=== PATIENT | male | born 1990 | race Caucasian/White ===

== ENCOUNTER 2018-04-14 21:16 | Emergency (ER) | END 2018-04-15 | disposition home or self-care (01) ==

== ENCOUNTER 2018-04-22 01:15 | Emergency (ER) | END 2018-04-22 04:33 | disposition left against medical advice (07) ==

== ENCOUNTER 2018-05-21 10:04 | Emergency (ER) | END 2018-05-21 10:58 | disposition home or self-care (01) ==

== ENCOUNTER 2018-09-16 03:38 | Emergency (ER) | END 2018-09-16 05:42 | disposition home or self-care (01) ==

== ENCOUNTER 2018-10-17 17:05 | Emergency (ER) | payer SELFPAY ==
[~2018-10-17] VITALS: Ht 167.6 cm; Wt 94.0 kg
[~2018-10-17 17:05] MED LIST: ACET500C5 PO; FAMO-96 PO; FIORICET PO; IBUP-1542 PO; OMEP20CA16 PO; ONDA4TAB14 PO; ONDA4TAB8 PO; PHEN177S43 MT
[2018-10-17 17:16] VITALS: BP 136/73; PULSE 87; RESP 16; Ht 167.6 cm; Wt 94.0 kg
== END 2018-10-17 18:01 | disposition left against medical advice (07) ==
LOC: FTE 17:05
DX: Z53.21 Procedure and treatment not carried out due to patient leaving prior to being seen by health care provider (principal)

== ENCOUNTER 2019-01-16 11:42 | Emergency (ER) | payer OTHER ==
[~2019-01-16] VITALS: Ht 170.2 cm; Wt 89.5 kg
[2019-01-16 11:48] VITALS: Ht 170.2 cm; Wt 89.5 kg
[2019-01-16] MEDS ORDERED: IBUP800T48 PO (13:02)
--- NOTE | 2019-01-16 13:02 | ERD ---
ER Documentation Chief Complaint Chief Complaint Chest pain x 3 days denies radiating pain HX acid reflux HPI This is a 28-year-old male is complaining of sharp left costosternal chest pain that is pinpoint for the past 3 days. He says he has had off and on for a few weeks and occurs when he has deep breaths. He says he really notices it when he plays basketball while running and occasionally other times. He says it hurts worse when he lays on his back and feels better when he lays on his right side. No radiation of pain or difficulty breathing no nausea palpitations ROS All systems reviewed and are negative except as per history of present illness. Medications Home Meds Active Scripts Ibuprofen* (Motrin*) 600 Mg Tab, 600 MG PO Q6, #30 TAB Prov:MARIUSZ KEBEDE PA-C 09/16/18 Phenol* (Chloraseptic* [place]) 177 Ml [place].pump, 2 SPRAY MT Q2H PRN for SORE THROAT, #1 BOTTLE Prov:MARIUSZ KEBEDE PA-C 09/16/18 Omeprazole* (Omeprazole*) 20 Mg Capsule.dr, 20 MG PO DAILY, #10 Prov:RAH CRUZ PA-C 05/21/18 Ondansetron (Ondansetron Odt) 4 Mg Tab.rapdis, 4 MG PO Q6H PRN for NAUSEA AND/OR VOMITING, #10 TAB Prov:RAH CRUZ PA-C 05/21/18 Acetamin/Butalbital/Caffeine* (Fioricet*) [id number] Tab, 1 TAB PO Q6H PRN for PAIN, #30 TAB Prov:RAH CRUZ PA-C 05/21/18 Famotidine* (Pepcid*) 20 Mg Tablet, 20 MG PO DAILY for 30 Days, TAB Prov:PASILAFRANCIS MEDINA 04/14/18 Ondansetron Hcl* (Zofran*) 4 Mg Tablet, 4 MG PO Q8H PRN for NAUSEA AND/OR VOMITING, #30 TAB Prov:FRANCIS PEREZ 04/14/18 Acetaminophen* (Tylophen*) 500 Mg Capsule, 1 CAP PO Q6H PRN for PAIN AND OR ELEVATED TEMP, #20 CAP Prov:PASILAFRANCIS MEDINA 04/14/18 Allergies Allergies: Coded Allergies: No Known Drug Allergies (Verified Allergy, Unknown, 05/21/18) PMhx/Soc History of Surgery: No Anesthesia Reaction: No Hx Neurological Disorder: No Hx Respiratory Disorders: No Hx Cardiac Disorders: No Hx Psychiatric Problems: No Hx Miscellaneous Medical Probl: Yes (GERD) Hx Alcohol Use: No Hx Substance Use: Yes (OCCASIONAL MARIJUANA) Hx Tobacco Use: Yes (less than 1 pack a day) Smoking Status: Light tobacco smoker FmHx Family History: No coronary disease Physical Exam Vitals Vital Signs Date Temp Pulse Resp B/P (MAP) Pulse Ox O2 O2 Flow FiO2 Time Delivery Rate 01/16/19 96.7 76 16 121/60 99 11:48 (80) Physical Exam Const: Well-developed, well-nourished Head: Atraumatic, normocephalic Eyes: Normal Conjunctiva, PERRLA, EOMI, normal sclera, no nystagmus ENT: Normal External Ears, Nose and Mouth, moist mucus membranes. Neck: Full range of motion. No meningismus, no lymphadenopathy. Resp: Clear to auscultation bilaterally, no wheezing, rhonchi, rales, there is pinpoint reproducible chest pain at the left costosternal margin of rib 4 Cardio: Regular rate and rhythm, no murmurs, S1 S2 present Abd: Soft, non tender x 4, non distended. Normal bowel sounds, no guarding or rebound, no pulsitile abdominal masses or bruits Skin: No petechiae or rashes, no ecchymosis , no maculopapular rash Back: No midline or flank tenderness Ext: No cyanosis, or edema, FROM x 4, normal inspection, neurovascularly intact x 4 Neur: Awake and alert, STR 5/5 x 4, sensation intact x 4, no focal findings, cerebellum intact Psych: Normal Mood and Affect Procedures/MDM MR #: [id number] DOS: 01/16/19 1222 Ordering MD: VERONA ISLAS DO Location: E/R Room/Bed: PROCEDURE: XR Chest AP portable CLINICAL INDICATION: Chest pain TECHNIQUE: An AP portable radiograph of the chest was submitted. COMPARISON: None. FINDINGS: Support Hardware: None Cardiovascular: The cardiovascular silhouette appears unremarkable. Lung Florez: The lung florez appear clear with no nodule, alveolar infiltrate, or interstitial prominence evident. Pleural Spaces: No pneumothorax or pleural effusion is identified. Osseous Structures: The osseous structures appear intact. Soft Tissues: The soft tissues appear unremarkable. IMPRESSION: Unremarkable portable chest without evidence of active cardiopulmonary disease. Physician [place] Date Time Electronically viewed and signed by Carlos Arauz Physician on 01/16/2019 12:55 RH/ CC: VERONA ISLAS DO [id number] EKG: Rate/Rhythm: Normal Sinus Rhythm,NL intervals QRS, ST, QT: NORMAL VT, QRS, QT] Impression: NORMAL EKG The patient's chest pain is clearly musculoskeletal in nature. The patient does work out a lot in the gym lifting heavy weights. Discussed with him resting and stretching carefully Departure Diagnosis: Primary Impression: Chest wall pain Condition: Stable VERONA ISLAS DO Jan 16, 2019 13:02
[2019-01-16 13:11] VITALS: BP 135/78; PULSE 71; RESP 20
== END 2019-01-16 13:00 | disposition home or self-care (01) ==
LOC: E/R 11:42
DX: R07.89 Other chest pain (principal); F17.210 Nicotine dependence, cigarettes, uncomplicated
CPT/HCPCS: 71045; Z7502

== ENCOUNTER 2019-02-22 11:08 | Day surgery (SDC) | payer OTHER ==
[~2019-02-22] VITALS: Ht 170.2 cm; Wt 90.6 kg
[~2019-02-22 11:08] MED LIST changes: +IBUP800T48 PO
[2019-02-22 11:54] VITALS: BP 100/57; PULSE 72; RESP 13
[2019-02-22 11:59] VITALS: Ht 170.2 cm; Wt 90.6 kg
[2019-02-22] MEDS ORDERED: CYCLOBENZAPRINE PO (12:02)
[2019-02-22] MEDS ORDERED: FENTAnyl 50 MCG/ML VIAL ONE (12:08)
[2019-02-22] MEDS ORDERED: PROPOFOL 20 ML ONE (12:08)
[2019-02-22] MEDS ORDERED: LIDOCAINE 2% (SDV) 5 ML INJ ONE (12:08)
--- NOTE | 2019-02-22 12:08 | PREAC ---
Date/Time of Note Date/Time of Note DATE: 02/22/19 TIME: 12:07 Anesthesia Eval and Record Evaluation Time Pre-Procedure Interview DATE: 02/22/19 TIME: 12:07 Age 28 Sex male NPO: 8 hrs Preoperative diagnosis ABDOMINAL PAIN, REFLUX ESOPHAGITIS Planned procedure EGD WITH BIOPSIES Past Medical History Past Medical History: Includes Pulm: Smoking Hx (MARIJUANA) Surgery & Anesthesia Issues No known issue Meds Anticoagulation: No Beta Son within 24 hr: No Reason Beta Son not given: Pt. not on B-Son Active Scripts Omeprazole* (Omeprazole*) 20 Mg Capsule.dr, 20 MG PO DAILY, #10 Prov:RAH CRUZ PA-C 05/21/18 Reported Medications [Cyclobenzaprine] No Conflict Check, PO DAILY PRN for MUSCLE SPASMS 02/22/19 Discontinued Scripts Ibuprofen* (Motrin*) 800 Mg Tab, 800 MG PO Q6H PRN for PAIN AND OR ELEVATED TEMP, #30 TAB Prov:VERONA ISLAS DO 01/16/19 Ibuprofen* (Motrin*) 600 Mg Tab, 600 MG PO Q6, #30 TAB Prov:MARIUSZ KEBEDE PA-C 09/16/18 Phenol* (Chloraseptic* [place]) 177 Ml [place].pump, 2 SPRAY MT Q2H PRN for SORE THROAT, #1 BOTTLE Prov:MARIUSZ KEBEDE PA-C 09/16/18 Ondansetron (Ondansetron Odt) 4 Mg Tab.rapdis, 4 MG PO Q6H PRN for NAUSEA AND/OR VOMITING, #10 TAB Prov:RAH CRUZ PA-C 05/21/18 Acetamin/Butalbital/Caffeine* (Fioricet*) [id number] Tab, 1 TAB PO Q6H PRN for PAIN, #30 TAB Prov:RAH CRUZ PA-C 05/21/18 Famotidine* (Pepcid*) 20 Mg Tablet, 20 MG PO DAILY for 30 Days, TAB Prov:FRANCIS PEREZ 04/14/18 Ondansetron Hcl* (Zofran*) 4 Mg Tablet, 4 MG PO Q8H PRN for NAUSEA AND/OR VOMITING, #30 TAB Prov:PASILAFRANCIS MEDINA 04/14/18 Acetaminophen* (Tylophen*) 500 Mg Capsule, 1 CAP PO Q6H PRN for PAIN AND OR ELEVATED TEMP, #20 CAP Prov:FRANCIS PEREZ 04/14/18 Meds reviewed: Yes Allergies Coded Allergies: No Known Drug Allergies (Verified Allergy, Unknown, 02/22/19) Allergies Reviewed: Yes Labs/Studies Labs Reviewed: Reviewed by anesthesiologist test: N/A Pre-procedure Exam Airway: Adequate mouth opening, Adequate thyromental dist Mallampati: Mallampati II Teeth: Normal Lung: Normal Heart: Normal ASA Physical Status ASA physical status: 2 Emergency: None Planned Anesthetic General/MAC: MAC Planned Pain Management Parenteral pain med Pre-operative Attestations Prior to commencing anesthesia and surgery, the patient was re-evaluated, there was verification of: *The patient's identity *The results of appropriate recent lab work and preoperative vital signs *The above evaluation not changing prior to induction *Anesthetic plan, risk benefits, alternative and complications discussed with patient/family; questions answered; patient/family understands, accepts and wishes to proceed. Anderson Khan M.D. February 22, 2019 12:08
--- NOTE | 2019-02-22 12:24 | PAC ---
Date/Time of Note Date/Time of Note DATE: 02/22/19 TIME: 12:23 Post-Anesthesia Notes Post-Anesthesia Note Last documented vital signs HR 77 RR 14 BP 114/75 T 98.6 Activity: WNL Respiratory function: WNL Cardiovascular function: WNL Mental status: Baseline Pain reasonably controlled: Yes Hydration appropriate: Yes Nausea/Vomiting absent: Yes Anderson Khan M.D. February 22, 2019 12:24
== END 2019-02-22 13:07 | disposition home or self-care (01) ==
LOC: GIL 11:08
PROVIDERS: ATTEND Internal Medicine Gastroenterology
DX: K21.9 Gastro-esophageal reflux disease without esophagitis (principal)
CPT/HCPCS: 43239; J3010; Z7610; 88305

== ENCOUNTER 2019-02-26 23:15 | Emergency (ER) | payer OTHER ==
[~2019-02-26] VITALS: Ht 170.2 cm; Wt 91.0 kg
[~2019-02-26 23:15] MED LIST changes: -ACET500C5 PO; +CYCLOBENZAPRINE PO; -FAMO-96 PO; -FIORICET PO; -IBUP-1542 PO; -IBUP800T48 PO; -ONDA4TAB14 PO; -ONDA4TAB8 PO; -PHEN177S43 MT
[2019-02-26 23:19] VITALS: Ht 170.2 cm; Wt 91.0 kg
[2019-02-26] MEDS ORDERED: LIDOCAINE/MYLANTA 40 ML BTL PO STA (23:44)
[2019-02-26] MEDS ORDERED: BELLADONNA/PHENOBARBITAL TAB PO STA (23:44)
--- NOTE | 2019-02-26 23:55 | ERD ---
ER Documentation Chief Complaint Chief Complaint abdominal pain/cramping since yesterday HPI 28-year-old male with history of gastritis is here complaining of epigastric pain. He states that he takes omeprazole occasionally. He had a endoscopy 4 days ago and was told that it was normal and there were no ulcers only gastritis. No nausea or vomiting. No chest pain palpitations or shortness of breath. ROS All systems reviewed and are negative except as per history of present illness. Medications Home Meds Active Scripts Omeprazole* (Omeprazole*) 20 Mg Capsule.dr, 20 MG PO DAILY, #10 Prov:RAH CRUZ PA-C 05/21/18 Reported Medications [Cyclobenzaprine] No Conflict Check, PO DAILY PRN for MUSCLE SPASMS 02/22/19 Discontinued Scripts Ibuprofen* (Motrin*) 800 Mg Tab, 800 MG PO Q6H PRN for PAIN AND OR ELEVATED TEMP, #30 TAB Prov:VERONA ISLAS DO 01/16/19 Ibuprofen* (Motrin*) 600 Mg Tab, 600 MG PO Q6, #30 TAB Prov:MARIUSZ KEBEDE PA-C 09/16/18 Phenol* (Chloraseptic* [place]) 177 Ml [place].pump, 2 SPRAY MT Q2H PRN for SORE THROAT, #1 BOTTLE Prov:MARIUSZ KBEEDE PA-C 09/16/18 Ondansetron (Ondansetron Odt) 4 Mg Tab.rapdis, 4 MG PO Q6H PRN for NAUSEA AND/OR VOMITING, #10 TAB Prov:RAH CRUZ PA-C 05/21/18 Acetamin/Butalbital/Caffeine* (Fioricet*) [id number] Tab, 1 TAB PO Q6H PRN for PAIN, #30 TAB Prov:RAH CRUZ PA-C 05/21/18 Famotidine* (Pepcid*) 20 Mg Tablet, 20 MG PO DAILY for 30 Days, TAB Prov:FRANCIS PEREZ 04/14/18 Ondansetron Hcl* (Zofran*) 4 Mg Tablet, 4 MG PO Q8H PRN for NAUSEA AND/OR VOMITING, #30 TAB Prov:FRANCIS PEREZ 04/14/18 Acetaminophen* (Tylophen*) 500 Mg Capsule, 1 CAP PO Q6H PRN for PAIN AND OR ELEVATED TEMP, #20 CAP Prov:FRANCIS PEREZ 04/14/18 Allergies Allergies: Coded Allergies: No Known Drug Allergies (Verified Allergy, Unknown, 02/22/19) PMhx/Soc History of Surgery: No Anesthesia Reaction: No Hx Neurological Disorder: No Hx Respiratory Disorders: Yes (PT STATES SOMETIMES WAKES UP AT NIGHT D/T BLOATING) Hx Cardiac Disorders: No (PT STATES ER VISIT LAST MONTH D/T CHEST PAIN, NO HEART PROBLEMS) Hx Psychiatric Problems: No Hx Miscellaneous Medical Probl: No Hx Alcohol Use: No Hx Substance Use: Yes (OCCASIONAL MARIJUANA,LAST USE 3 WEEKS AGO) Hx Tobacco Use: Yes (VAPING DAILY) Smoking Status: Current every day smoker FmHx Family History: No diabetes Physical Exam Vitals Vital Signs Date Temp Pulse Resp B/P (MAP) Pulse Ox O2 O2 Flow FiO2 Time Delivery Rate 02/26/19 97.2 72 18 140/81 99 23:19 (100) Physical Exam INITIAL VITAL SIGNS: Reviewed by me GENERAL: Awake, alert and oriented x 4, well appearing, nontoxic, speaking in full sentences. No acute distress HEAD: Atraumatic RESPIRATORY: Clear to auscultation bilaterally. Symmetric chest wall rise. No wheezing or rales. No accessory muscle use. CV: Regular rate and rhythm. No murmurs, rubs, or gallops. ABDOMEN: Soft, non-distended. Nontender. Negative Viola. Negative McBurneys point tenderness. No CVA tenderness bilaterally. No guarding. No rebound. Results 24 hrs Current Medications Medications Dose Sig/Margarito Start Time Status Last (Trade) Ordered Route PRN Stop Time Admin Dose Reason Admin 40 ml ONCE STAT 02/26/19 DC 02/26/19 Miscellaneous PO 23:44 23:53 Medication 02/26/19 23:45 (Gi Cocktail (2)) [place]/ 2 tab ONCE STAT 02/26/19 DC 02/26/19 Phenobarbital PO 23:44 23:53 () 02/26/19 23:45 Procedures/MDM This is a 28-year-old male with epigastric pain. His exam is normal and he is afebrile well-appearing in no distress. He states that he just feels anxious so he just wanted to get make sure that he is okay. I reviewed notes from his endoscopy 4 days ago. He was given a GI cocktail here. He should continue to take the omeprazole as prescribed. Patient counseled regarding my diagnostic impression and care plan. Prior to discharge all questions answered. Pt agrees with treatment plan and understands strict return precautions. Pt is instructed to follow up with primary care provider within 24-48 hours. Precautionary instructions provided including instructions to return to the ER if not improving or for any worsening or changing symptoms or concerns. Departure Diagnosis: Primary Impression: Abdominal pain Condition: Stable Patient Instructions: Abdominal Pain Additional Instructions: Call your primary care doctor TOMORROW for an appointment during the next 1-2 days.See the doctor sooner or return here if your condition worsens before your appointment time. KAIT HERNÁNDEZ PA-C February 26, 2019 23:55
[2019-02-27 00:28] VITALS: BP 132/77; PULSE 68; RESP 16
== END 2019-02-27 00:28 | disposition home or self-care (01) ==
LOC: FTE 23:15
DX: R10.13 Epigastric pain (principal); F17.210 Nicotine dependence, cigarettes, uncomplicated
CPT/HCPCS: Z7502; Z7610; 99283